=== PATIENT | female | born 1940 | race Caucasian/White ===

== ENCOUNTER 2024-04-24 11:59 | Day surgery (SDC) | payer MEDICARE ==
[2024-04-24] MEDS ORDERED: DIPRIVAN 200 MG/20 ML IV ONE (14:22)
--- NOTE | 2024-04-24 15:28 | XRAY ---
Indication: Bilateral L4-S1 MBB. Intraoperative fluoroscopy provided for 8 seconds. Single digital spot image submitted for interpretation demonstrates posterior needle tips projecting over the expected left and right L4-S1 nerve roots. Correlate with intraoperative findings/report.
[2024-04-24] MEDS ORDERED: Lactated Ringers 1,000 ML IV ONE (15:30)
--- NOTE | 2024-04-24 16:51 | XRAY ---
8 seconds of fluoroscopy was used in surgery for a bilateral L4-S1 MBB.
== END 2024-04-24 14:51 | disposition home or self-care (01) ==
LOC: SDC-PAIN 11:59
PROVIDERS: ATTEND Psychiatry & Neurology Pain Medicine
DX: M47.816 Spondylosis without myelopathy or radiculopathy, lumbar region (principal)
CPT/HCPCS: 64493; 64494; 72020; 77002; J2704

== ENCOUNTER 2024-05-29 11:36 | Day surgery (SDC) | payer MEDICARE ==
[2024-05-29] MEDS ORDERED: Depo-Medrol 40 MG/ML IM ONE (11:37)
[2024-05-29] MEDS ORDERED: BUPIVACAINE 0.5% VIAL IJ ONE (11:37)
[2024-05-29] MEDS ORDERED: Lactated Ringers 1,000 ML IV ONE (12:52)
[2024-05-29] MEDS ORDERED: DIPRIVAN 200 MG/20 ML IV ONE (13:05)
--- NOTE | 2024-05-29 14:45 | XRAY ---
Indication: Bilateral L4-S1 MBB. Intraoperative fluoroscopy was provided for 15 seconds. Single digital spot image submitted for interpretation demonstrates posterior needle tips projecting over the expected left and right L4-S1 nerve roots. Correlate with intraoperative findings/report.
--- NOTE | 2024-05-29 15:13 | XRAY ---
15 seconds of fluoroscopy was used in surgery for a bilateral L4-S1 MBB.
== END 2024-05-29 13:37 | disposition home or self-care (01) ==
LOC: SDC-PAIN 11:36
PROVIDERS: ATTEND Psychiatry & Neurology Pain Medicine
DX: M47.816 Spondylosis without myelopathy or radiculopathy, lumbar region (principal)
CPT/HCPCS: 64493; 64494; 72020; 77002; J2704

== ENCOUNTER 2024-06-27 07:58 | Day surgery (SDC) | payer MEDICARE ==
[2024-06-27] MEDS ORDERED: LIDOCAINE HCL 1% 50 MG/5 ML VL PF IJ ONE (07:59)
[2024-06-27] MEDS ORDERED: BUPIVACAINE 0.5% VIAL IJ ONE (07:59)
[2024-06-27] MEDS ORDERED: Depo-Medrol 40 MG/ML IM ONE (07:59)
[2024-06-27] MEDS ORDERED: Lactated Ringers 1,000 ML IV ONE (10:06)
[2024-06-27] MEDS ORDERED: DIPRIVAN 200 MG/20 ML IV ONE (10:13)
--- NOTE | 2024-06-27 11:42 | XRAY ---
Indication: Right L4-S1 RFA. Intraoperative fluoroscopy provided for 22 seconds. 5 digital spot image submitted for interpretation demonstrates posterior needle tips projecting over the expected right L4-S1 nerve roots. Correlate with intraoperative findings/report.
--- NOTE | 2024-06-27 12:22 | XRAY ---
22 seconds of fluoroscopy was used in surgery for a right L4-S1 RFA.
== END 2024-06-27 10:45 | disposition home or self-care (01) ==
LOC: SDC-PAIN 07:58
PROVIDERS: ATTEND Psychiatry & Neurology Pain Medicine
DX: M47.816 Spondylosis without myelopathy or radiculopathy, lumbar region (principal); M47.817 Spondylosis without myelopathy or radiculopathy, lumbosacral region
CPT/HCPCS: 64635; 64636; 72100; 77002; 99100; J2001; J2704

== ENCOUNTER 2024-07-03 11:10 | Day surgery (SDC) | payer MEDICARE ==
[2024-07-03] MEDS ORDERED: BUPIVACAINE 0.5% VIAL IJ ONE (11:11)
[2024-07-03] MEDS ORDERED: Depo-Medrol 40 MG/ML IM ONE (11:11)
[2024-07-03] MEDS ORDERED: LIDOCAINE HCL 1% 50 MG/5 ML VL PF IJ ONE (11:11)
[2024-07-03] MEDS ORDERED: APRESOLINE 20 MG/ML INJ ONE (12:20)
[2024-07-03] MEDS ORDERED: DIPRIVAN 200 MG/20 ML IV ONE (13:26)
[2024-07-03] MEDS ORDERED: Lactated Ringers 1,000 ML IV ONE (13:49)
--- NOTE | 2024-07-03 20:00 | XRAY ---
Indication: Left L4-S1 RFA Intraoperative fluoroscopy provided for 34 seconds. 3 digital spot image submitted for interpretation demonstrates posterior needle tips projecting over the expected left L4-S1 nerve roots. Correlate with intraoperative findings/report.
--- NOTE | 2024-07-03 20:20 | XRAY ---
34 seconds of fluoroscopy was used in surgery for a left L4-S1 RFA.
== END 2024-07-03 14:00 ==
LOC: SDC-PAIN 11:10
PROVIDERS: ATTEND Psychiatry & Neurology Pain Medicine
DX: M47.816 Spondylosis without myelopathy or radiculopathy, lumbar region (principal)
CPT/HCPCS: 64635; 64636; 72100; 77002; 99100; J0360; J2001; J2704